=== PATIENT | male | born 1955 | race Caucasian/White ===

== ENCOUNTER → 2019-09-10 09:07 | Outpatient (BNVA) | payer MEDICARE, MEDICAID, SELFPAY | PROVIDERS: Family Provider Internal Medicine; PCP Internal Medicine; Visit Provider Nurse Practitioner | DX: G89.29 Other chronic pain (principal); M54.16 Radiculopathy, lumbar region; M47.819 Spondylosis without myelopathy or radiculopathy, site unspecified; M54.2 Cervicalgia; M25.512 Pain in left shoulder; M81.0 Age-related osteoporosis without current pathological fracture; F17.210 Nicotine dependence, cigarettes, uncomplicated; Z79.891 Long term (current) use of opiate analgesic | CPT/HCPCS: 99214 ==

== ENCOUNTER → 2019-11-05 08:13 | Outpatient (BNVA) | payer MEDICARE, MEDICAID, SELFPAY | PROVIDERS: Family Provider Internal Medicine; PCP Internal Medicine; Visit Provider Anesthesiology | DX: G89.29 Other chronic pain (principal); M54.16 Radiculopathy, lumbar region; M51.36 Other intervertebral disc degeneration, lumbar region; M51.26 Other intervertebral disc displacement, lumbar region; M47.816 Spondylosis without myelopathy or radiculopathy, lumbar region; M47.819 Spondylosis without myelopathy or radiculopathy, site unspecified; M48.061 Spinal stenosis, lumbar region without neurogenic claudication; M54.2 Cervicalgia; M25.512 Pain in left shoulder; F17.210 Nicotine dependence, cigarettes, uncomplicated | CPT/HCPCS: 99214 ==

== ENCOUNTER 2019-11-28 13:39 | Emergency (ER) | payer MEDICARE, MEDICAID, SELFPAY ==
[2019-11-28 13:47] VITALS: BP 143/81; PULSE 60; RESP 17; TEMP 36.9; O2SAT 97; BMI 27.6
--- NOTE | 2019-11-28 13:53 | CT_ITS ---
WS: [id number] CT HEAD NONCONTRAST HISTORY: extremity numbness and weakness TECHNIQUE: Contiguous axial imaging performed through the brain in 2.5 mm imaging. Bone and soft tiss ue windows. Sagittal and coronal reformats reviewed. All CT scans at [facility] use at le ast one of these dose optimization techniques: automated exposure control; mA and/or kV adjustment pe r patient size (includes targeted exams where dose is matched to clinical indication); or iterative r econstruction. DLP: 744.99 mGy.cm COMPARISON: MRI brain 10/07/2014 Extensive bilateral vasogenic edema. Largest amount of edema is in the LEFT frontoparietal and tempor al lobes. There is additional extensive edema on the RIGHT. Mild bowing of the midline structures to the RIGHT by 3.8 mm. No hemorrhage. Rounded low-attenuation nodules are evident within the RIGHT fron kanika parietal and RIGHT parieto-occipital regions. No significant edema in the cerebellum. No atrophy or prior infarcts or herniation. Small lacunar infarct inferior RIGHT basal ganglia. Ventricles: Normal size with no hydrocephalus. Paranasal sinuses: As visualized are clear. Mastoid air cells: Well pneumatized. Calvarium and scalp: Skull is intact with no soft tissue edema or swelling. Notified Oneal Dickens DO at 11/28/2019 2:[address]/CT head wo con* [id number] IMPRESSION: 1. Large amount of vasogenic edema bilaterally with underlying lesions suspect ed. Favor bilateral metastatic disease, tumefactive MS, Lyme disease or abscess es with cerebral edema. 2. Slight shift of midline structures to the RIGHT of midline by 3.8 mm.
--- NOTE | 2019-11-28 13:53 | W.ED.UPPEXIN ---
HPI - Extremity Injury (Upper) General: Chief Complaint: Extremity Problem,Nontraumatic Stated Complaint: Arm numbness Time Seen by Provider: 11/28/19 13:45 History of Present Illness: HPI narrative: 64-year-old male presents to the emergency room complaining the last several weeks he has had discomfort in his left hand he has noticed some increased swelling in his hand he can still move his fingers but he is at a loss of sensation he does not have any other specific complaints no difficulty speech or swallowing. No difficulty walking. He has not had any injury that he can recall no previous surgeries or injuries to that hand. MD complaint: injury to: left and hand Onset (ago): week(s) (2) Other Extremity Injury: Left: hand Other injuries: none Place: home Severity: moderate Associated symptoms: Reports numbness Review of Systems Const: Denies: fever, chills, body aches, change in appetite, fatigue or malaise ENMT: Denies: throat pain, ear pain, nasal discharge or nasal congestion Card: Denies: chest pain, edema, shortness of breath on exertion or shortness of breath when lying down Resp: Denies: shortness of breath, productive cough or non-productive cough GI: Denies: abdominal pain, nausea, vomiting, vomiting blood, coffee grounds in vomit, diarrhea, constipation, bloating, blood in stool or black tarry stool : Denies: flank pain, painful urination, urinary frequency or urinary urgency Skin/Breast: Denies: rash or itching PFSH ED PFSH: Medical History Chronic midline posterior neck pain Chronic pain in left shoulder Compression fracture of body of thoracic vertebra L-4 L5 Degeneration of lumbar intervertebral disc with acute herniation 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 DR RAMÍREZ IN [place] Social History (Updated 11/05/19 @ 08:33 by Dahiana Cee LPN) Smoking and tobacco status: current every day smoker cigarettes Packs smoked per day: 1 [ Other cigarette details: PATIENT SMELLS HEAVILY OF CIG SMOKE ] Alcohol intake: never Physical Exam Const: COMMON NORMALS: no apparent distress GENERAL APPEARANCE: cooperative and comfortable ORIENTATION/CONSCIOUSNESS: Yes awake, Yes oriented to person, Yes oriented to place and Yes oriented to time HENMT: COMMON NORMALS: normocephalic, head/scalp atraumatic, hearing grossly normal bilaterally, external ears normal, EAC's normal, TM's normal bilaterally, nasal mucous membranes and turbinates normal, moist oral mucous membranes and oropharynx normal HEAD & SCALP: normocephalic and atraumatic NOSE: nasal mucous membranes and turbinates normal EXTERNAL EAR: Yes external ears normal EXTERNAL AUDITORY CANAL: EAC's normal TYMPANIC MEMBRANE: TM's normal bilaterally Eye: COMMON NORMALS: PERRL, EOMs intact bilaterally, conjunctivae normal and no scleral icterus CONJUNCTIVA: Yes conjunctivae normal PUPIL: Yes PERRL Neck/C-Spine: COMMON NORMALS: full ROM, no lymphadenopathy, supple and no JVD Lymph: LYMPHATIC: no lymphadenopathy noted and no lymphedema noted Resp: COMMON NORMALS: normal respiratory effort, no retractions, no use of accessory muscles and clear to auscultation bilaterally AUSCULTATION: clear to auscultation bilaterally Cardio: COMMON NORMALS: no JVD, regular rate, regular rhythm and no murmurs RATE: regular rate RHYTHM: regular rhythm GI: COMMON NORMALS: soft to palpation and no hepatosplenomegaly AUSCULTATION: Yes normoactive bowel sounds PALPATION: Yes soft, No tender, No guarding and Yes no hepatosplenomegaly Extremity: COMMON NORMALS: normal to inspection, normal capillary refill, no clubbing, cyanosis or edema, no calf tenderness and no pedal edema OTHER: Moderate swelling at the left hand. It is throughout the entire hand there is decreased sensation promotion manager strength 4/5 flexion extension at the wrist also slightly diminished at 4/5. There is no evidence of injury no deformity. Negative Spurling's maneuver Neuro: SENSORIUM/ORIENTATION: Yes oriented to person, Yes oriented to place and Yes oriented to time Skin: COMMON NORMALS: no rashes or lesions noted GENERAL SKIN EXAM: no rashes or lesions noted Course Vital Signs: Vital signs: Vital Signs Temperature 98.4 F 11/28/19 13:47 Pulse Rate 57 L 11/28/19 16:27 Respiratory Rate 18 11/28/19 16:27 Blood Pressure 160/89 11/28/19 16:27 Pulse Oximetry 100 04/03/20 16:27 MDM - Extremity Injury (Upper) MDM Narrative: Medical decision making narrative: CT the head showed large amount of cerebral edema which is very concerning. CT of the neck did show some left C5-6 foraminal stenosis patient needs further evaluation from neurology and neurosurgery to determine what the cause of the changes seen on the head CT and whether or not they are related to the hand or the foraminal stenosis is a suspect more the foraminal stenosis stenosis may be related to the hand issue. Organ to go ahead and transfer him to [facility] at his request to be ER to ER and they will consult neurology we did load him with Kejosh prior to discharge discussed with the patient and due to visitor restrictions had to discuss with his family outside of the hospital in our screening tend. Was given permission by the patient to discuss with his family. I answered all questions they are agreeable to transfer. Lab Data: Labs: Lab Results 11/28/19 Range/Units 14:00 WBC 4.4 (4.0-10.0) 10^3/ uL RBC 4.71 (4.1-5.3) 10^6/u L Hgb 13.1 (11.7-16.6) g/dL Hct 40.8 L (42.0-52.0) % MCV 86.6 (80-94) fL MCH 27.8 L (28.0-34.0) pg MCHC 32.1 (30.0-36.0) g/dL RDW 13.0 (12.1-15.1) % Plt Count 142 (130-400) 10^3/c mm MPV 9.7 (7.4-10.4) fL Neut % (Auto) 57.1 % Lymph % (Auto) 30.8 % Caroline % (Auto) 9.2 % Eos % (Auto) 2.5 % Baso % (Auto) 0.2 % Neut # (Auto) 2.5 (1.8-7.7) 10^3/u L Lymph # (Auto) 1.3 (0.8-4.8) 10^3/u L Caroline # (Auto) 0.4 (0.2-0.9) 10^3/u L Eos # (Auto) 0.1 (0.0-0.8) 10^3/u L Baso # (Auto) 0.0 (0.0-0.1) 10^3/u L Nucleated RBC % (a uto) 0 % Nucleated RBCs # 0.0 /100WBC Imaging Data^: Other CT: Radiologist's impression: CT CERVICAL SPINE HISTORY: Neck pain with L arm weakness and numbness TECHNIQUE: Contiguous 2.5 mm axial imaging performed through the entire cervical spine. Sagittal and coronal reformats also performed. All CT scans at [facility] use at least one of these dose optimization techniques: automated exposure control; mA and/or kV adjustment per patient size (includes targeted exams where dose is matched to clinical indication); or iterative reconstruction. DLP: 523.16 mGy.cm COMPARISON: MRI 07/12/2016 Reversal of normal cervical lordosis centered at C6-7. Mild RIGHT convex curvature. C5 anterolisthesis by 3 mm. Moderate disc space narrowing and desiccation at C5-6 and C6-7. Craniocervical junction is normal. C2-C3: Normal. C3-C4: Mild facet arthropathy with mild LEFT foraminal narrowing. C4-C5: Moderate facet joint arthropathy on the LEFT. There is mild osteophytic ridging. Moderate LEFT foraminal stenosis. C5-C6: Osteophytic ridging and facet joint arthritis. Mild central with severe LEFT foraminal stenosis. Mild stenosis on the RIGHT. C6-C7: Severe osteophytic ridging with encroachment upon the ventral thecal sac. There is an osteophyte encroaching into the LEFT subarticular recess. Moderate central and bilateral foraminal stenosis. C7-T1: Normal. Scattered calcified plaque at the carotid bifurcations. No cervical adenopathy. CT/CT cervical spin wo con* [id number] IMPRESSION: 1. Moderate to severe degenerative changes in the cervical spine. 2. Severe LEFT foraminal stenosis at C5-6. 3. Moderate LEFT foraminal stenosis at C4-5. 4. Moderate central and bilateral foraminal stenosis at C6-7. Dictated By:Isis Rust DO Signed By: CT Head: Radiologist's impression: CT HEAD NONCONTRAST HISTORY: extremity numbness and weakness TECHNIQUE: Contiguous axial imaging performed through the brain in 2.5 mm imaging. Bone and soft tissue windows. Sagittal and coronal reformats reviewed. All CT scans at [facility] use at least one of these dose optimization techniques: automated exposure control; mA and/or kV adjustment per patient size (includes targeted exams where dose is matched to clinical indication); or iterative reconstruction. DLP: 744.99 mGy.cm COMPARISON: MRI brain 10/07/2014 Extensive bilateral vasogenic edema. Largest amount of edema is in the LEFT frontoparietal and temporal lobes. There is additional extensive edema on the RIGHT. Mild bowing of the midline structures to the RIGHT by 3.8 mm. No hemorrhage. Rounded low-attenuation nodules are evident within the RIGHT frontal parietal and RIGHT parieto-occipital regions. No significant edema in the cerebellum. No atrophy or prior infarcts or herniation. Small lacunar infarct inferior RIGHT basal ganglia. Ventricles: Normal size with no hydrocephalus. Paranasal sinuses: As visualized are clear. Mastoid air cells: Well pneumatized. Calvarium and scalp: Skull is intact with no soft tissue edema or swelling. Notified Oneal Dickens DO at 11/28/2019 2:[address]/CT head wo con* [id number] IMPRESSION: 1. Large amount of vasogenic edema bilaterally with underlying lesions suspected. Favor bilateral metastatic disease, tumefactive MS, Lyme disease or abscesses with cerebral edema. 2. Slight shift of midline structures to the RIGHT of midline by 3.8 mm. Dictated By:Isis Rust DO Discharge Plan Discharge Patient Disposition: Xfer Short-Term Hosp Referrals: Renee Clifford MD [Primary Care Provider] - Discharge Date/Time: 11/28/19 16:33 Coding Level of Care Code ED Property Appraiser for Chg Fwd Exam Comprehensive NIH stroke score NIHSS Level Of Consciousness - 1a: 0 Level Of Consciousness Questions - 1b: Both Correct Level Of Consciousness Commands - 1c: Both Correct Best Gaze - 2: Normal Visual Salas - 3: No Visual Loss Facial Palsy - 4: Normal Motor Arm Right - 5: No Drift Motor Arm Left - 5: No Drift Motor Leg Right - 6: No Drift Motor Leg Left - 6: No Drift Limb Ataxia - 7: Present In One Limb Sensory - 8: Normal Best Language - 9: No Aphasia Dysarthia - 10: Normal Extinction And Inattention - 11: 0 Score Total Score: 1
--- NOTE | 2019-11-28 13:54 | CT_ITS ---
WS: [id number] CT CERVICAL SPINE HISTORY: Neck pain with L arm weakness and numbness TECHNIQUE: Contiguous 2.5 mm axial imaging performed through the entire cervical spine. Sagittal and coronal reformats also performed. All CT scans at [facility] use at least one of these do se optimization techniques: automated exposure control; mA and/or kV adjustment per patient size (inc ludes targeted exams where dose is matched to clinical indication); or iterative reconstruction. DLP: 523.16 mGy.cm COMPARISON: MRI 07/12/2016 Reversal of normal cervical lordosis centered at C6-7. Mild RIGHT convex curvature. C5 anterolisthesi s by 3 mm. Moderate disc space narrowing and desiccation at C5-6 and C6-7. Craniocervical junction is normal. C2-C3: Normal. C3-C4: Mild facet arthropathy with mild LEFT foraminal narrowing. C4-C5: Moderate facet joint arthropathy on the LEFT. There is mild osteophytic ridging. Moderate LEFT foraminal stenosis. C5-C6: Osteophytic ridging and facet joint arthritis. Mild central with severe LEFT foraminal stenosi s. Mild stenosis on the RIGHT. C6-C7: Severe osteophytic ridging with encroachment upon the ventral thecal sac. There is an osteophy te encroaching into the LEFT subarticular recess. Moderate central and bilateral foraminal stenosis. C7-T1: Normal. Scattered calcified plaque at the carotid bifurcations. No cervical adenopathy. CT/CT cervical spin wo con* [id number] IMPRESSION: 1. Moderate to severe degenerative changes in the cervical spine. 2. Severe LEFT foraminal stenosis at C5-6. 3. Moderate LEFT foraminal stenosis at C4-5. 4. Moderate central and bilateral foraminal stenosis at C6-7.
[2019-11-28 14:14] LABS: Basophils % 0.2 %; Eosinophils # 0.1 10^3/uL (0.0-0.8); Eosinophils % 2.5 %; Hematocrit 40.8 % (42.0-52.0); Hemoglobin 13.1 g/dL (11.7-16.6); Lymphocytes # 1.3 10^3/uL (0.8-4.8); Lymphocytes % 30.8 %; Mean Corpuscular HGB Conc 32.1 g/dL (30.0-36.0); Mean Corpuscular Hemoglobin 27.8 pg (28.0-34.0); Mean Corpuscular Volume 86.6 fL (80-94); Mean Platelet Volume 9.7 fL (7.4-10.4); Monocytes # 0.4 10^3/uL (0.2-0.9); Monocytes % 9.2 %; Neutrophils # 2.5 10^3/uL (1.8-7.7); Neutrophils % 57.1 %; Nucleated Red Blood Cells % 0 %; Platelet Count 142 10^3/cmm (130-400); Red Blood Count 4.71 10^6/uL (4.1-5.3); White Blood Count 4.4 10^3/uL (4.0-10.0)
[2019-11-28 14:48] VITALS: BP 130/63; PULSE 62; RESP 18; O2SAT 100
[2019-11-28 16:27] VITALS: BP 160/89; PULSE 57; RESP 18; O2SAT 100
== END 2019-11-28 16:33 | disposition short-term general hospital (02) ==
LOC: ER 13:52
PROVIDERS: Emergency Provider Family Medicine; Family Provider Internal Medicine; PCP Internal Medicine
DX: G93.6 Cerebral edema (principal); M48.02 Spinal stenosis, cervical region; M48.061 Spinal stenosis, lumbar region without neurogenic claudication; M81.0 Age-related osteoporosis without current pathological fracture; M54.16 Radiculopathy, lumbar region; Z79.899 Other long term (current) drug therapy; F17.210 Nicotine dependence, cigarettes, uncomplicated
CPT/HCPCS: 12345; 70450; 72125; 85025; 96365; 99282; 99284; J1953